=== PATIENT | female | born 1935 | race African-American/Black ===

== ENCOUNTER 2016-12-29 06:22 | Emergency (ER) | payer MEDICARE, MEDICAID ==
[~2016-12-29] VITALS: Ht 162.6 cm; Wt 89.0 kg
[~2016-12-29 06:22] MED LIST: ASPI-1035 PO; ATOR20TA65 PO; CLOP75TA33 PO; DEXL60CA3 PO; DOCU-138 PO; FERR-63 PO; NOVOLOG; NYSTATIN TOP; PROAIR HFA
[2016-12-29] MEDS ORDERED: SODIUM CHLORIDE 0.9% 500 ML IV ONE (06:55)
[2016-12-29] MEDS ORDERED: MECLIZINE 25MG TABLET PO ONE (07:00)
[2016-12-29] MEDS ORDERED: HYDROXYZINE 25MG TABLET PO ONE (07:00)
[2016-12-29 07:31] LABS: EOSINOPHILS % 0.7 % (0.0-5.0); HEMATOCRIT. 33.2 % (36.0-48.0); LYMPHOCYTES % 25.8 % (20.0-50.0); MEAN CORPUSCULAR HEMOGLOBIN 30.2 pg (28.0-32.0); MEAN CORPUSCULAR VOLUME 91.4 fL (81.0-99.0); MEAN PLATELET VOLUME 8.8 fl (7.4-10.4); NEUTROPHILS % 65.5 % (40.0-76.0); PLATELET 245 x1000/uL (130-400); RED BLOOD CELL COUNT 3.63 mill/uL (4.2-5.4); RED CELL DISTRIBUTION WIDTH 12.6 % (11.6-14.6)
[2016-12-29 07:47] LABS: ALANINE AMINOTRANSFERASE 18 IU/L (13-61); ALBUMIN 3.5 g/dL (3.4-5.0); ANION GAP 13; CALCIUM 8.6 mg/dL (8.5-10.1); CARBON DIOXIDE 28 mEq/L (21-32); CHLORIDE 99 mEq/L (98-107); INDEX HEMOLYSI 2 (1-3); INDEX ICTERIC 1 (1-4); INDEX LIPEMIC 1 (1-3); UREA NITROGEN BLOOD 36 mg/dL (7-21); eGFR 44 mL/min (>60)
[2016-12-29 07:52] LABS: TROPONIN I < 0.02 ng/mL (0.00-0.04)
[2016-12-29 09:04] VITALS: BP 177/73
== END 2016-12-29 10:51 | disposition home or self-care (01) ==
LOC: ER 06:23
DX: I12.9 Hypertensive chronic kidney disease with stage 1 through stage 4 chronic kidney disease, or unspecified chronic kidney disease (principal); Z88.6 Allergy status to analgesic agent; Z88.0 Allergy status to penicillin; Z79.899 Other long term (current) drug therapy; Z79.82 Long term (current) use of aspirin; E11.65 Type 2 diabetes mellitus with hyperglycemia; B35.3 Tinea pedis; E11.22 Type 2 diabetes mellitus with diabetic chronic kidney disease; N18.9 Chronic kidney disease, unspecified
CPT/HCPCS: 36415; 71010; 80053; 84484; 85025; 96360; 99285; J7040; J7030; J8597

== ENCOUNTER 2017-09-29 12:59 | Inpatient (IN) | payer MEDICARE, MEDICAID ==
[~2017-09-29] VITALS: Ht 162.6 cm; Wt 95.3 kg
[~2017-09-29 12:59] MED LIST changes: -ASPI-1035 PO; +ASPI-1158 PO
[2017-09-29] MEDS ORDERED: SODIUM CHLORIDE 0.9% 1,000 ML IV ONE (13:14)
[2017-09-29 13:34] LABS: BASOPHILS % 0.8 % (0.0-2.0); EOSINOPHILS % 0.2 % (0.0-5.0); HEMATOCRIT. 34.4 % (36.0-48.0); HEMOGLOBIN. 11.5 g/dL (12.0-16.0); LYMPHOCYTES % 19.7 % (20.0-50.0); MEAN CORPUSCULAR HEMOGLOBIN 30.5 pg (28.0-32.0); MEAN CORPUSCULAR VOLUME 91.1 fL (81.0-99.0); MEAN PLATELET VOLUME 8.6 fl (7.4-10.4); NEUTROPHILS % 72.3 % (40.0-76.0); PLATELET 282 x1000/uL (130-400); RED BLOOD CELL COUNT 3.77 mill/uL (4.2-5.4); RED CELL DISTRIBUTION WIDTH 12.7 % (11.6-14.6)
[2017-09-29 13:39] LABS: INR 1.1; PROTHROMBIN TIME 11.2 sec (9.4-11.6)
[2017-09-29 13:47] LABS: CARBON DIOXIDE 28 mEq/L (21-32); CHLORIDE 96 mEq/L (98-107)
[2017-09-29] MEDS ORDERED: HYDRALAZINE 20MG/ML VIAL IV ONE (14:15)
[2017-09-29] MEDS ORDERED: INSULIN REGULAR (HUMULIN R) 300UNITS/3ML IV ONE (15:15)
[2017-09-29 16:45] VITALS: BP 116/59
[2017-09-29] MEDS ORDERED: BIMA2.5D4 EACHEYE (16:50)
[2017-09-29] MEDS ORDERED: FURO80TA3 PO (16:50)
[2017-09-29] MEDS ORDERED: LOSA50TA20 PO (16:50)
[2017-09-29] MEDS ORDERED: LINA290C PO (16:50)
[2017-09-29 17:22] VITALS: BP 116/59
[2017-09-29] MEDS ORDERED: ACETAMINOPHEN 325MG TABLET PO PRN (18:30)
[2017-09-29] MEDS ORDERED: ONDANSETRON HCL 4MG/2ML VIAL IV PRN (18:30)
[2017-09-29] MEDS ORDERED: DEXTROSE 50% WATER 50ML SYRINGE IV PRN (18:30)
[2017-09-29] MEDS ORDERED: DOCUSATE SODIUM 100MG CAPSULE PO PRN (18:45)
[2017-09-29] MEDS: BLOOD SUGAR DIAGNOSTIC STRIP TEST SCH ×2 (18:57→21:21)
[2017-09-29] MEDS: INSULIN LISPRO 100 UNITS/ML SUBCUT SCH ×3 (19:03→21:26)
[2017-09-29 20:00] VITALS: BP 127/50
[2017-09-29] MEDS: ATORVASTATIN CALCIUM 20MG TABLET PO SCH (21:18)
[2017-09-29] MEDS: HYDROCODONE/ACETAMINOPHEN 5/325MG TABLET PO PRN (21:20)
[2017-09-29] MEDS: LATANOPROST 0.005% OPHTH DROPS 2.5ML OP SCH (21:21)
[2017-09-29] MEDS: INSULIN DETEMIR UD 100 UNITS/ML SYR SUBCUT SCH (21:27)
[2017-09-30] VITALS: BP 108/54
[2017-09-30 04:00] VITALS: BP 151/77
[2017-09-30 07:12] LABS: BASOPHILS % 0.8 % (0.0-2.0); EOSINOPHILS % 0.6 % (0.0-5.0); HEMATOCRIT. 31.1 % (36.0-48.0); HEMOGLOBIN. 10.4 g/dL (12.0-16.0); LYMPHOCYTES % 25.5 % (20.0-50.0); MEAN CORPUSCULAR VOLUME 89.5 fL (81.0-99.0); MEAN PLATELET VOLUME 9.2 fl (7.4-10.4); MONOCYTES % 7.7 % (2.0-8.0); NEUTROPHILS % 65.4 % (40.0-76.0); PLATELET 255 x1000/uL (130-400); RED BLOOD CELL COUNT 3.47 mill/uL (4.2-5.4)
[2017-09-30 08:00] VITALS: BP 180/81
[2017-09-30] MEDS: INSULIN LISPRO 100 UNITS/ML SUBCUT SCH ×7 (08:10→20:31)
[2017-09-30] MEDS: CLOPIDOGREL 75MG TABLET PO SCH (08:33)
[2017-09-30] MEDS: BLOOD SUGAR DIAGNOSTIC STRIP TEST SCH ×4 (08:33→20:30)
[2017-09-30] MEDS: OMEPRAZOLE 20MG CAPSULE EXTENDED RELEASE PO SCH (08:33)
[2017-09-30] MEDS: ASPIRIN 81MG EC TABLET PO SCH (08:35)
[2017-09-30] MEDS: FERROUS SULFATE 325MG TABLET PO SCH (08:35)
[2017-09-30] MEDS ORDERED: MEDICATION NOT ON FORMULARY EA (Dexlansoprazole (Dexilant) 60 MG) PO SCH (09:00)
[2017-09-30] MEDS ORDERED: LOSARTAN POTASSIUM 50 MG TABLET PO SCH (09:00)
[2017-09-30] MEDS ORDERED: FUROSEMIDE 80MG TABLET PO SCH (09:00)
[2017-09-30] MEDS: INSULIN DETEMIR UD 100 UNITS/ML SYR SUBCUT SCH ×2 (10:13→22:20)
[2017-09-30 12:00] VITALS: BP 148/59
[2017-09-30] MEDS ORDERED: AMLODIPINE 5MG TABLET PO NR (12:30)
[2017-09-30] MEDS: SODIUM CHLORIDE 0.45% 1,000 ML IV SCH (13:12)
[2017-09-30 16:00] VITALS: BP 168/64
[2017-09-30] MEDS ORDERED: MEDICATION NOT ON FORMULARY EA (Bimatoprost (Lumigan) 1 DROP) EACHEYE SCH (17:00)
[2017-09-30] MEDS: HYDROCODONE/ACETAMINOPHEN 5/325MG TABLET PO PRN (18:12)
[2017-09-30 20:00] VITALS: BP 114/50
[2017-09-30] MEDS: ATORVASTATIN CALCIUM 20MG TABLET PO SCH (20:33)
[2017-09-30] MEDS: LATANOPROST 0.005% OPHTH DROPS 2.5ML OP SCH (20:33)
[2017-09-30] MEDS ORDERED: ATORVASTATIN CALCIUM 20MG TABLET PO SCH (21:00)
[2017-09-30] MEDS ORDERED: ZOLPIDEM TARTRATE 5MG TABLET PO PRN (22:00)
[2017-10-01] VITALS: BP 166/48
[2017-10-01] MEDS ORDERED: LOSARTAN POTASSIUM 50 MG TABLET PO NR (00:15)
[2017-10-01] MEDS ORDERED: AMLODIPINE 2.5MG TABLET PO NR (00:15)
[2017-10-01] MEDS: SODIUM CHLORIDE 0.45% 1,000 ML IV SCH (03:19)
[2017-10-01 04:00] VITALS: BP 135/45
[2017-10-01 06:58] LABS: BASOPHILS % 0.6 % (0.0-2.0); EOSINOPHILS % 1.1 % (0.0-5.0); HEMATOCRIT. 29.7 % (36.0-48.0); HEMOGLOBIN. 9.9 g/dL (12.0-16.0); LYMPHOCYTES % 40.5 % (20.0-50.0); MEAN CORPUSCULAR HEMOGLOBIN 29.7 pg (28.0-32.0); MEAN CORPUSCULAR VOLUME 89.4 fL (81.0-99.0); MEAN PLATELET VOLUME 8.9 fl (7.4-10.4); MONOCYTES % 9.3 % (2.0-8.0); NEUTROPHILS % 48.5 % (40.0-76.0); PLATELET 236 x1000/uL (130-400); RED BLOOD CELL COUNT 3.32 mill/uL (4.2-5.4); RED CELL DISTRIBUTION WIDTH 13.2 % (11.6-14.6)
[2017-10-01] MEDS: BLOOD SUGAR DIAGNOSTIC STRIP TEST SCH (07:40)
[2017-10-01 08:00] VITALS: BP 134/58
[2017-10-01 08:09] LABS: CARBON DIOXIDE 26 mEq/L (21-32); CHLORIDE 103 mEq/L (98-107); TROPONIN I < 0.02 ng/mL (0.00-0.04)
[2017-10-01] MEDS: ASPIRIN 81MG EC TABLET PO SCH (08:41)
[2017-10-01] MEDS: CLOPIDOGREL 75MG TABLET PO SCH (08:41)
[2017-10-01] MEDS: OMEPRAZOLE 20MG CAPSULE EXTENDED RELEASE PO SCH (08:41)
[2017-10-01] MEDS: FERROUS SULFATE 325MG TABLET PO SCH (08:41)
[2017-10-01] MEDS: INSULIN LISPRO 100 UNITS/ML SUBCUT SCH ×2 (08:43→08:44)
[2017-10-01] MEDS ORDERED: AMLODIPINE 5MG TABLET PO SCH (09:00)
[2017-10-01] MEDS ORDERED: LOSARTAN POTASSIUM 100 MG TABLET PO SCH (09:00)
[2017-10-01] MEDS: INSULIN DETEMIR UD 100 UNITS/ML SYR SUBCUT SCH (11:09)
[2017-10-01 12:00] VITALS: BP 123/98
== END 2017-10-01 14:08 | disposition home or self-care (01) | DRG 304 ==
LOC: ER 13:09 → 7WST 15:12 → ENRESERV 15:25
PROVIDERS: ADMIT Family Medicine Adult Medicine; ATTEND Family Medicine Adult Medicine
DX: I13.10 Hypertensive heart and chronic kidney disease without heart failure, with stage 1 through stage 4 chronic kidney disease, or unspecified chronic kidney disease (principal); N17.0 Acute kidney failure with tubular necrosis; I16.1 Hypertensive emergency; E11.22 Type 2 diabetes mellitus with diabetic chronic kidney disease; E11.51 Type 2 diabetes mellitus with diabetic peripheral angiopathy without gangrene; D64.9 Anemia, unspecified; E11.65 Type 2 diabetes mellitus with hyperglycemia; N18.9 Chronic kidney disease, unspecified; E66.01 Morbid (severe) obesity due to excess calories; E78.5 Hyperlipidemia, unspecified; E86.0 Dehydration; E87.5 Hyperkalemia; I25.10 Atherosclerotic heart disease of native coronary artery without angina pectoris; I25.2 Old myocardial infarction; Z79.4 Long term (current) use of insulin; Z79.899 Other long term (current) drug therapy; Z90.710 Acquired absence of both cervix and uterus; Z95.1 Presence of aortocoronary bypass graft; Z95.5 Presence of coronary angioplasty implant and graft; Z88.6 Allergy status to analgesic agent; Z88.5 Allergy status to narcotic agent; Z68.36 Body mass index [BMI] 36.0-36.9, adult
CPT/HCPCS: 36415; 71010; 80048; 80053; 82962; 83036; 84484; 85025; 85610; 93005; 93306; 93970; 96361; 96374; 96375; 99291; A6261; J0360; J1815; J7030